=== PATIENT | female | born 1990 | race Two or more races ===

== ENCOUNTER 2023-11-30 09:58 | Emergency (ER) | payer MEDICAID ==
[~2023-11-30] VITALS: Ht 172.7 cm; Wt 88.6 kg
[2023-11-30 10:10] VITALS: TEMP 98.3
[2023-11-30] MEDS ORDERED: IBUP-1492 PO (12:59)
[2023-11-30] MEDS ORDERED: CYCL-448 PO (12:59)
[2023-11-30] MEDS: IBUPROFEN 600 MG TABLET PO ONE (13:01)
[2023-11-30] MEDS: LIDOCAINE 5% TRANSDERMAL PATCH TD ONE (13:02)
[2023-11-30 13:17] VITALS: BP 136/86; PULSE 67; RESP 16; O2SAT 98
== END 2023-11-30 14:46 | disposition home or self-care (01) ==
LOC: EMS 09:58
DX: M54.50 Low back pain, unspecified (principal)
CPT/HCPCS: 99283